=== PATIENT | male | born 1985 | race Caucasian/White ===

== ENCOUNTER 2020-08-11 13:52 | Emergency (ER) | payer OTHER, SELFPAY ==
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
--- NOTE | 2020-08-11 16:15 | NUR ---
PT IN IMAGING
[2020-08-11 18:24] VITALS: BP 119/77
== END 2020-08-11 18:26 | disposition home or self-care (01) ==
LOC: ED 18:21
DX: S92.012A Displaced fracture of body of left calcaneus, initial encounter for closed fracture (principal); M79.89 Other specified soft tissue disorders; X58.XXXA Exposure to other specified factors, initial encounter; Y93.89 Activity, other specified; Y92.89 Other specified places as the place of occurrence of the external cause; Y99.8 Other external cause status
CPT/HCPCS: 99285

== ENCOUNTER 2020-08-25 08:16 | Day surgery (SDC) | payer MEDICAID, OTHER ==
[~2020-08-25] VITALS: Ht 185.4 cm; Wt 78.9 kg
[~2020-08-25 08:16] MED LIST: HYDR-2214 PO; IBUP-1222 PO
[2020-08-25] MEDS ORDERED: CHLORHEXIDINE 15 ML UDC PO ONE (09:00)
[2020-08-25] MEDS ORDERED: LACTATED RINGERS 1,000 ML IV SCH (09:00)
[2020-08-25] MEDS ORDERED: MIDAZOLAM 1 MG/ML, 2ML ONE (09:01)
[2020-08-25] MEDS ORDERED: DIPHENHYDRAMINE 50 MG/ML, 1ML ONE (09:01)
[2020-08-25] MEDS ORDERED: FENTANYL PF 250 MCG/5ML ONE ×2 (09:01→15:07)
[2020-08-25 09:14] VITALS: BP 120/80
[2020-08-25] MEDS ORDERED: METHOCARBAMOL 1,000 MG in DEXTROSE 5% 100 ML IV PRN (11:30)
[2020-08-25] MEDS ORDERED: ACETAMINOPHEN 325 MG TABLET PO PRN (11:30)
[2020-08-25] MEDS ORDERED: OXYcodone 5 MG/5 ML ORAL.SOL UDC PO PRN (11:30)
[2020-08-25] MEDS ORDERED: LABETALOL 5MG/ML, 20ML IV PRN (11:30)
[2020-08-25] MEDS ORDERED: HYDROmorphone 1 MG/ML, 1ML INJ IVPush PRN (11:30)
[2020-08-25] MEDS ORDERED: EPHEDRINE 50 MG/ML, 1ML IVPush PRN (11:30)
[2020-08-25] MEDS ORDERED: ONDANSETRON 2MG/ML, 2ML IVPush PRN (11:30)
[2020-08-25] MEDS ORDERED: MEPERIDINE/PF 25MG/0.5ML IVPush PRN (11:30)
[2020-08-25] MEDS ORDERED: hydrALAzine 20 MG/ML, 1ML IV PRN (11:30)
[2020-08-25] MEDS ORDERED: FENTANYL PF 100 MCG/2ML IV PRN (11:30)
[2020-08-25] MEDS ORDERED: PROMETHAZINE 25 MG/ML, 1ML IVPush PRN (11:30)
[2020-08-25] MEDS ORDERED: LORazepam 2 MG/ML, 1ML IVPush PRN (11:30)
[2020-08-25] MEDS ORDERED: ONDANSETRON 2MG/ML, 2ML ONE (14:31)
[2020-08-25] MEDS ORDERED: ROCURONIUM 10MG/ML,5ML ONE (14:31)
[2020-08-25] MEDS ORDERED: DEXAMETHASONE 4 MG/ML, 1ML ONE (14:31)
[2020-08-25] MEDS ORDERED: SUCCINYLCHOLINE 20 MG/ML, 10ML ONE (14:31)
[2020-08-25] MEDS ORDERED: PROPOFOL 10 MG/ML, 20ML ONE (14:31)
[2020-08-25] MEDS ORDERED: CEFAZOLIN 1,000 MG ONE (14:31)
[2020-08-25] MEDS ORDERED: NEOSTIGMINE 1 MG/ML, 10ML ONE (14:31)
[2020-08-25] MEDS ORDERED: GLYCOPYRROLATE 0.2MG/1ML, 5ML ONE (14:31)
[2020-08-25] MEDS ORDERED: MEPERIDINE/PF 50 MG/ML ONE (15:14)
[2020-08-25] MEDS ORDERED: OXYcodone 5 MG/5 ML ORAL.SOL UDC ONE (16:17)
== END 2020-08-25 18:25 | disposition home or self-care (01) ==
LOC: OUT 08:16
PROVIDERS: ATTEND Orthopaedic Surgery
DX: S92.061A Displaced intraarticular fracture of right calcaneus, initial encounter for closed fracture (principal); S92.062A Displaced intraarticular fracture of left calcaneus, initial encounter for closed fracture; M20.12 Hallux valgus (acquired), left foot; M20.11 Hallux valgus (acquired), right foot; F17.210 Nicotine dependence, cigarettes, uncomplicated; Z20.822 Contact with and (suspected) exposure to COVID-19; V63.5XXA Driver of heavy transport vehicle injured in collision with car, pick-up truck or van in traffic accident, initial encounter; Y93.39 Activity, other involving climbing, rappelling and jumping off; Y92.488 Other paved roadways as the place of occurrence of the external cause; Y99.0 Civilian activity done for income or pay
CPT/HCPCS: 28415; 73650; 87635; C1713; J0330; J0690; J1100; J1200; J2175; J2250; J2405; J2704; J2710; J3010; J7120; 76000